=== PATIENT | male | born 1960 | race Caucasian/White ===

== ENCOUNTER → 2021-03-28 | Day surgery (SDC) | payer OTHER ==
[~2021-03-28] VITALS: Ht 182.9 cm; Wt 72.6 kg
[~2021-03-28] MED LIST: ASCORBIC ACID500 MG PO; ASPIRIN81 MG PO; BUSPIRONE HCL15 M1 PO; METFORMIN HCL1000 MG PO; PRAMIPEXOLE DI0.5 MG PO; PROTONIX 40MG T40 MG PO; ROSUVASTATIN CA20 MG PO; SERTRALINE HCL100 MG PO; VITAMIN D310 MC4 PO
== END | disposition home or self-care (01) ==
LOC: FAS 07:34
DX: K29.71 Gastritis, unspecified, with bleeding (principal); K52.9 Noninfective gastroenteritis and colitis, unspecified; K44.9 Diaphragmatic hernia without obstruction or gangrene; K62.5 Hemorrhage of anus and rectum; Z85.46 Personal history of malignant neoplasm of prostate; E11.9 Type 2 diabetes mellitus without complications; I10 Essential (primary) hypertension; E78.5 Hyperlipidemia, unspecified; Z90.49 Acquired absence of other specified parts of digestive tract; Z88.5 Allergy status to narcotic agent; Z79.82 Long term (current) use of aspirin; Z79.84 Long term (current) use of oral hypoglycemic drugs; Z98.1 Arthrodesis status; J44.9 Chronic obstructive pulmonary disease, unspecified; G47.30 Sleep apnea, unspecified; Z87.11 Personal history of peptic ulcer disease
CPT/HCPCS: J2250; J2704; J7120